=== PATIENT | male | born 1975 | race Caucasian/White ===

== ENCOUNTER 2022-06-22 00:06 | Observation (INO) ==
[2022-06-22] MEDS ORDERED: FUROSEMIDE 20 MG/2 ML VIAL IV STA (00:26)
[2022-06-22] MEDS ORDERED: ASPIRIN 325 MG TABLET PO STA (00:26)
[2022-06-22] MEDS ORDERED: NITROGLYCERIN 2% OINT 1 INCH/GM PACK TOP STA (00:26)
[2022-06-22] MEDS ORDERED: LABETALOL 20 MG/4 ML SYRINGE IV STA ×2 (00:26→00:53)
[2022-06-22] MEDS ORDERED: FUROSEMIDE 40 MG/4 ML VIAL ONE (00:33)
[2022-06-22] MEDS ORDERED: FUROSEMIDE 40 MG/4 ML VIAL IV STA (00:33)
[2022-06-22 00:42] LABS: Basophils % 0.5 % (0.0-0.8); Eosinophils # 0.3 10*3/uL (0.0-0.87); Eosinophils % 4.8 % (0.00-10.9); Hematocrit 46.2 VOL% (42.0-52.0); Hemoglobin 14.3 GM/DL (14.0-18.0); Immature Granulocytes % 0.3 %; Immature Granulocytes Absolute 0.02 #; Lymphocytes # 2.1 10*3/uL (1.4-4.0); Lymphocytes % 31.1 % (21.2-54.2); Mean Platelet Volume 11.4 FL (9.6-12.0); Monocytes # 0.4 10*3/uL (0.11-0.8); Monocytes % 5.7 % (1.7-12.7); Neutrophils % 57.6 % (38.7-73.9); Platelet Count 210 T/CUMM (130-400); Red Blood Count 5.37 MC/CUMM (3.8-5.5); Red Cell Distribution Width 13.4 % (9.3-17.3); White Blood Count 6.7 T/CUMM (4-12)
[2022-06-22 00:58] LABS: Alanine Aminotransferase 32 U/L (16-61); Albumin 2.9 G/DL (3.4-5.0); Alkaline Phosphatase 129 U/L (45-117); Aspartate Amino Transferase 31 U/L (0-37); Bilirubin,Total < 0.39 MG/DL (0.20-1.00); Blood Urea Nitrogen 25 MG/DL (7-18); Calcium 8.8 MG/DL (8.5-10.1); Carbon Dioxide 27 MMOL/L (21-32); Chloride 106 MMOL/L (98-107); Glucose 428 MG/DL (74-106); Osmolality,Calculated 300.4 MOS/KG (273-304); Potassium 4.1 MMOL/L (3.5-5.1); Sodium 140 MMOL/L (136-145); Total Protein 6.4 G/DL (6.4-8.2)
[2022-06-22] MEDS ORDERED: INSULIN REGULAR 100 UNIT/ML IV STA (01:00)
[2022-06-22 01:41] LABS: INR 0.9; PT Patient Result 10.4 SECS (10.1-12.1); Partial Thromboplastin Time 27.6 SECS (23.7-32.9)
[2022-06-22 01:44] LABS: Barbiturates Screen,Urine Negative (Negative); Benzodiazepines Screen,Urine Negative (Negative); Cannabinoid Screen,Urine Negative (Negative); Opiate Screen,Urine Negative (Negative); Phencyclidine Screen,Urine Negative (Negative)
[2022-06-22] MEDS ORDERED: ONDANSETRON 4 MG/2 ML VIAL IV PRN (02:24)
[2022-06-22] MEDS ORDERED: LABETALOL 20 MG/4 ML SYRINGE IV PRN (02:24)
[2022-06-22] MEDS ORDERED: MORPHINE 2 MG/1 ML SYRINGE IV PRN (02:24)
[2022-06-22] MEDS ORDERED: ACETAMINOPHEN 325 MG TABLET PO PRN (02:24)
[2022-06-22 03:00] LABS: Risk Ratio 3.3; Thyroid Stimulating Hormone 7.3 uIU/ml (0.358-3.74); VLDL Cholesterol 52.4 MG/DL
[2022-06-22] MEDS ORDERED: ENOXAPARIN 80 MG/0.8 ML SYRINGE SUBCUT ONE (03:00)
[2022-06-22] MEDS: INSULIN LISPRO 100 UNIT/ML SUBCUT SCH ×3 (06:21→15:36)
[2022-06-22] MEDS ORDERED: CHLORTHALIDONE 25 MG TABLET PO SCH (09:00)
[2022-06-22] MEDS ORDERED: PANTOPRAZOLE 40 MG TABLET PO SCH (09:00)
[2022-06-22] MEDS ORDERED: INSULIN REGULAR 100 UNIT/ML IV ONE (09:10)
[2022-06-22] MEDS ORDERED: INSULIN GLARGINE 100 UNIT/ML SUBCUT SCH ×2 (09:30)
[2022-06-22] MEDS ORDERED: DEXTROSE 10% 250 ML BAG IV PRN (12:16)
[2022-06-22] MEDS ORDERED: cloNIDine 0.1 MG TABLET PO SCH (13:00)
[2022-06-22 16:31] VITALS: BP 144/83
[2022-06-22] MEDS ORDERED: carvediloL 6.25 MG TABLET PO SCH (21:00)
[2022-06-22] MEDS ORDERED: ROSUVASTATIN 20 MG TABLET PO SCH (21:00)
[2022-06-22] MEDS ORDERED: ENOXAPARIN 40 MG/0.4 ML SYRINGE SUBCUT SCH (21:00)
[2022-06-23] MEDS ORDERED: ASPIRIN EC 325 MG TABLET PO SCH (09:00)
[2022-06-23] MEDS ORDERED: ASPIRIN EC 81 MG TABLET PO SCH (09:00)
== END 2022-06-22 18:27 | disposition home or self-care (01) ==
LOC: N.ED 00:06 → N.EDINP 00:06 → N.TELES 04:25
PROVIDERS: ADMIT Family Medicine; ATTEND Family Medicine